=== PATIENT | male | born 1965 | race Caucasian/White ===

== ENCOUNTER 2019-06-19 15:49 | Emergency (ER) | payer BC, OTHER ==
--- NOTE | 2019-06-19 17:03 | ED ---
Hypertension - HPI Summary HPI Summary: Patient is a 54 y/o M presenting to the ED for a chief complaint of hypertension. Patient is present with his mother and . Patient uses a blood pressure monitor at home and recently, has had high blood pressure. His PCP was going to place the patient on medications, but patient wanted to lower his blood pressure on his own. Patient states he drinks about 6 cups of coffee daily. He notes a nonproductive cough and occasional palpitations. Patient denies any fever, chills, fatigue, erythema of eyes, blurred vision, sore throat , chest pain, shortness of breath, abdominal pain, nausea, vomiting, dysuria, hematuria, myalgia, edema, rash, headache, slurred speech, or dizziness. No aggravating or alleviating factors are reported. PMHx is significant for Hodgkin s lymphoma for which he received chemotherapy. Patient takes synthoid. Patient admits alcohol use daily, typically beers, but denies tobacco use. His PCP is Dr. Sanchez. - History of Current Complaint Chief Complaint: EDHypertension Stated Complaint: HIGH BLOOD PRESSURE PER PT Time Seen by Provider: 06/19/19 16:52 Hx Obtained From: Patient Onset/Duration: Atraumatic, Still Present Timing: Constant Aggravating Factor(s): Nothing Alleviating Factor(s): Nothing Associated Signs & Symptoms: Other: - Occasional palpitations and nonproductive cough - Allergies/Home Medications Allergies/Adverse Reactions: Allergies Allergy/AdvReac Type Severity Reaction Status Date / Time No Known Allergies Allergy Verified 06/19/19 15:57 Home Medications: Home Medications Levothyroxine TAB* [Synthroid TAB*] 125 mcg PO DAILY 06/19/19 [History Confirmed 06/19/19] PMH/Surg Hx/FS Hx/Imm Hx Previously Healthy: Yes Endocrine/Hematology History: Denies: Hx Diabetes Cardiovascular History: Reports: Hx Hypertension Denies: Hx Hypercholesterolemia Respiratory History: Comment Only: Other Respiratory Problems/Disorders - HX OF HODGKINS LYMPHOMA Sensory History: Denies: Hx Legally Blind, Hx Deafness Opthamlomology History: Denies: Hx Legally Blind EENT History: Denies: Hx Deafness - Cancer History Cancer Type, Location and Year: Hodgkin's lymphoma Hx Chemotherapy: Yes - Surgical History Surgical History: None Surgery Procedure, Year, and Place: None Infectious Disease History: No Infectious Disease History: Denies: Traveled Outside the [place] in Last 30 Days - Family History Known Family History: Negative: Diabetes - Social History Occupation: Employed Full-time Lives: With Family Alcohol Use: Daily Alcohol Amount: Beer Hx Substance Use: No Substance Use Type: Reports: None Hx Tobacco Use: No Smoking Status (MU): Never Smoked Tobacco Review of Systems Negative: Fever, Chills Negative: Blurred Vision, Erythema Negative: Sore Throat Positive: Palpitations - Occasional. Negative: Chest Pain Positive: Cough - Nonproductive. Negative: Shortness Of Breath Negative: Abdominal Pain, Vomiting, Nausea Negative: dysuria, hematuria Negative: Myalgia, Edema Negative: Rash Neurological: Other - Negative dizziness Negative: Headache, Slurred Speech All Other Systems Reviewed And Are Negative: Yes Physical Exam - Summary Physical Exam Summary: Constitutional: Well-developed, Well-nourished, Alert. (-) Distressed Skin: Warm, Dry HENT: Normocephalic; Atraumatic Eyes: Conjunctiva normal Neck: Musculoskeletal ROM normal neck. (-) JVD, (-) Stridor, (-) Tracheal deviation Cardio: Rhythm regular, Heart Rate is 110, Heart sounds normal; Intact distal pulses; The pedal pulses are 2+ and symmetric. Radial pulses are 2+ and symmetric. (-) Murmur Pulmonary/Chest wall: Effort normal. (-) Respiratory distress, (-) Wheezes, (-) Rales Abd: Soft, (-) tenderness, (-) Distension, (-) Guarding, (-) Rebound Musculoskeletal: (-) Edema Lymph: (-) Cervical adenopathy Neuro: Alert, Oriented x3 Psych: Mood and affect Normal Triage Information Reviewed: Yes Vital Signs On Initial Exam: Initial Vitals Temp Pulse Resp BP Pulse Ox 98.7 F 115 18 215/125 99 06/19/19 15:55 06/19/19 15:55 06/19/19 15:55 06/19/19 15:55 06/19/19 15:55 Vital Signs Reviewed: Yes Procedures - Sedation Patient Received Moderate/Deep Sedation with Procedure: No Diagnostics - Vital Signs Vital Signs Temp Pulse Resp BP Pulse Ox 06/19/19 15:55 98.7 F 115 18 215/125 99 - Laboratory Result Diagrams: 06/19/19 17:34 06/19/19 17:34 Lab Statement: Any lab studies that have been ordered have been reviewed, and results considered in the medical decision making process. - EKG 18:01 Cardiac Rate: NL - 93 BPM EKG Rhythm: Sinus Rhythm ST Segment: Normal Ectopy: None Summary of EKG Findings: EKG at 18:01 shows normal sinus rhythm with 93 BPM, no STEMI. Reviewed and interpreted by Dr. Mays. Hypertension Course/Dx - Course Course Of Treatment: Patient is a 54 y/o M presenting to the ED for a chief complaint of hypertension. Patient is present with his mother and . Patient uses a blood pressure monitor at home and recently, has had high blood pressure. His PCP was going to place the patient on medications, but patient wanted to lower his blood pressure on his own. Patient states he drinks about 6 cups of coffee daily. He notes a nonproductive cough and occasional palpitations. Patient denies any fever, chills, fatigue, erythema of eyes, blurred vision, sore throat, chest pain, shortness of breath, abdominal pain, nausea, vomiting, dysuria, hematuria, myalgia, edema, rash, headache, slurred speech, or dizziness. No aggravating or alleviating factors are reported. PMHx is significant for Hodgkins lymphoma for which he received chemotherapy. Patient takes synthoid. Patient admits alcohol use daily, typically beers, but denies tobacco use. His PCP is Dr. Sanchez. On exam, heart rate is 110. In the ED course, patient was given Lisinopril 10 mg PO. Laboratory findings are unremarkable. EKG at 18:01 shows normal sinus rhythm with 93 BPM, no STEMI. Patient has asymptomatic HTN without end organ damage. Patient will be discharged with a diagnosis of hypertension. Follow up with PCP in 2-3 days. - Diagnoses Provider Diagnoses: Hypertension Discharge ED - Sign-Out/Discharge Documenting (check all that apply): Patient Departure - Discharge - Discharge Plan Condition: Stable Disposition: HOME Prescriptions: Lisinopril TAB* [Prinivil TAB 10 MG*] 10 mg PO DAILY #14 tab Patient Education Materials: Hypertension (ED) Referrals: Keyla Sanchez MD [Primary Care Provider] - Additional Instructions: RETURN TO THE EMERGENCY DEPARTMENT FOR CHANGING OR WORSENING SYMPTOMS. Follow up with your primary care physician in 2-3 days. - Attestation Statements Document Initiated by Scribe: Yes Documenting Scribe: Ashlyn Silver Provider For Whom Scribe is Documenting (Include Credential): Chris Mays MD Scribe Attestation: I, Ashlyn Silver, scribed for Chris Mays MD on 06/19/19 at 1917. Status of Scribe Document: Ready
[2019-06-19 17:41] LABS: ABS Basophils 0.1 10^3/ul (0-0.2); ABS Eosinophils 0.1 10^3/ul (0-0.6); ABS Lymphocytes 1.6 10^3/ul (1.0-4.8); ABS Monocytes 0.5 10^3/ul (0-0.8); ABS Neutrophils 3.3 10^3/ul (1.5-7.7); Eosinophil % 1.3 %; Hematocrit 42 % (42-52); Hemoglobin 14.6 g/dL (14.0-18.0); Lymphocyte % 29.4 %; Mean Corpuscular HGB Conc 35 g/dL (31-36); Mean Corpuscular Hemoglobin 31 pg (27-31); Mean Corpuscular Volume 89 fL (80-94); Mean Platelet Volume 8.1 fL (7.4-10.4); Nucleated Red Blood Cells % 0.3; Platelet Count 236 10^3/uL (150-450); Red Blood Count 4.71 10^6 /uL (4.18-5.48); Red Cell Distribution Width 15 % (10-15); White Blood Count 5.6 10^3/uL (3.5-10.8)
[2019-06-19 17:59] LABS: Albumin 4.7 g/dL (3.2-5.2); Albumin/Globulin Ratio 1.6 (1-3); Calcium 9.3 mg/dL (8.6-10.3); EGFR African American 119.7 (>60); EGFR Non-African American 98.9 (>60); Globulin 2.9 g/dL (2-4); Potassium 3.6 mmol/L (3.5-5.0); Total Bilirubin 0.8 mg/dL (0.2-1.0); Total Protein 7.6 g/dL (6.4-8.9)
[2019-06-19] MEDS ORDERED: Lisinopril TAB* 10 MG PO ONE (18:31)
[2019-06-19 18:55] LABS: TSH (Thyroid Stimulating Horm) 0.97 mcIU/mL (0.34-5.60)
[2019-06-19 18:57] LABS: Free T4 1.01 ng/dL (0.61-1.12)
[2019-06-19 20:32] VITALS: BP 174/97
== END 2019-06-19 20:31 | disposition home or self-care (01) ==
LOC: ED 15:49
DX: I10 Essential (primary) hypertension (principal); R00.2 Palpitations; R05 Cough; C81.90 Hodgkin lymphoma, unspecified, unspecified site; Z79.899 Other long term (current) drug therapy
CPT/HCPCS: 36415; 80053; 82530; 83605; 84439; 84443; 84484; 85025; 93005; 99283; A9270-GY